=== PATIENT | male | born 1990 ===

== ENCOUNTER 2023-11-18 04:53 | Day surgery (SDC) | payer OTHER ==
[2023-11-16 10:51] VITALS: BMI 20.9
[2023-11-18 10:39] VITALS: TEMP 98
[2023-11-18 11:16] VITALS: BP 105/73; PULSE 64; RESP 18
== END 2023-11-18 11:25 | disposition home or self-care (01) ==
LOC: JASU-ENDO 04:53 → EDBD 10:30 → JASU-ENDO 11:25
PROVIDERS: ATTEND Student in an Organized Health Care Education/Training Program
PROC: 0DB78ZX Excision of Stomach, Pylorus, Via Natural or Artificial Opening Endoscopic, Diagnostic (ICD-10-PCS; 2023-11-18)
PROC: 0DB68ZX Excision of Stomach, Via Natural or Artificial Opening Endoscopic, Diagnostic (ICD-10-PCS; 2023-11-18)
PROC: 0DB98ZX Excision of Duodenum, Via Natural or Artificial Opening Endoscopic, Diagnostic (ICD-10-PCS; principal; 2023-11-18 10:00)
DX: K20.90 Esophagitis, unspecified without bleeding (principal); K29.50 Unspecified chronic gastritis without bleeding; K29.80 Duodenitis without bleeding
CPT/HCPCS: 88305-TC; 88342-TC

== ENCOUNTER 2024-03-09 04:35 | Day surgery (SDC) | payer OTHER ==
[2024-03-08 13:48] VITALS: BMI 21.4
[2024-03-09 10:59] VITALS: TEMP 98
[2024-03-09 11:03] VITALS: BP 114/69; PULSE 73; RESP 18
== END 2024-03-09 11:34 | disposition home or self-care (01) ==
LOC: JASU-ENDO 04:35
PROVIDERS: ATTEND Student in an Organized Health Care Education/Training Program
PROC: 0DBP8ZX Excision of Rectum, Via Natural or Artificial Opening Endoscopic, Diagnostic (ICD-10-PCS; principal; 2024-03-09 09:00)
DX: K62.89 Other specified diseases of anus and rectum (principal); K64.8 Other hemorrhoids
CPT/HCPCS: 88305-TC